=== PATIENT | female | born 1960 | race Caucasian/White ===

== ENCOUNTER 2024-07-11 16:32 | Emergency (ER) | payer MEDICARE, OTHER ==
[~2024-07-11] VITALS: Ht 172.7 cm; Wt 89.1 kg
--- NOTE | 2024-07-11 17:54 | ED.PDOC ---
Back pain HPI HPI Comments 64 y.o female with PMHx of DM, presents to the ED for a chief complaint of upper extremity numbness associated with neck and lower back pain s/p mechanical fall 4 weeks ago. Patient was seen at [facility] when her fall occurred, had multiple X rays done showing left hand 4+5th digit fracture and cervical strain. Patient reports since, pain has been ongoing but states numbness sensation is new. She denies any new falls or injuries. Chief Complaint: Body Pain Time Seen by MD: 17:46 Primary Care Provider: DARIEN Reviewed Notes: Nurses Notes, Medications, Allergies Allergies: Coded Allergies: NO KNOWN ALLERGIES (Unverified , 07/11/24) Information Source: Patient Mode of Arrival: Ambulatory Timing: Weeks (4) Duration: Since onset Location of Back pain: (B) Lower back Severity: Moderate Quality: Sharp Onset: Blunt Trauma Circumstance: Other History of: Other Modifying Factors: Nothing Associated signs and symptoms: Other Past Medical History PAST MEDICAL HISTORY: DM Surgical History: Appendectomy, Cholecystectomy, Hysterectomy LINE PILOT History: No Pertinent LINE PILOT History Family History Family History: Family hx of Cancer Social History Smoker: Non-Smoker Alcohol: Occasionally Drugs: Denies Drug Use Lives In: Home Constitutional: denies: chills, diaphoresis, fatigue, fever, malaise, sweats, weakness, others EENTM: denies: blurred vision, double vision, ear bleeding, ear discharge, ear drainage, ear pain, ear ringing, eye pain, eye redness, hearing loss, mouth pain, mouth swelling, nasal discharge, nose bleeding, nose congestion, nose pain, photophobia, tearing, throat pain, throat swelling, voice changes, others Respiratory: denies: cough, hemoptysis, orthopnea, SOB at rest, shortness of breath, SOB with excertion, stridor, wheezing, others Cardiovascular: denies: chest pain, dizzy spells, diaphoresis, Dyspnea on exertion, edema, irregular heart beat, left arm pain, lightheadedness, palpitations, PND, syncope, others Gastrointestinal: denies: abdomen distended, abdominal pain, blood streaked bowels, constipated, diarrhea, dysphagia, difficulty swallowing, hematemesis, melena, nausea, poor appetite, poor fluid intake, rectal bleeding, rectal pain, vomiting, others Genitourinary: denies: abnormal vagina bleeding, burning, dyspareunia, dysuria, flank pain, frequency, hematuria, incontinence, pain, , vagina discharge, urgency, others Neurological: reports: numbness (upper extremity ); denies: dizziness, fainting, headache, left sided numbness, left sided weakness, paresthesia, pre- existing deficit, right sided numbness, right sided weakness, seizure, speech problems, tingling, tremors, weakness, others Musculoskeletal: reports: back pain, neck pain; denies: gout, joint pain, joint swelling, muscle pain, muscle stiffness, others Integumetry: denies: bruises, change in color, change in hair/nails, dryness, laceration, lesions, lumps, rash, wounds, others Allergic/Immunocompromised: denies: Difficulty Healing, Frequent Infections, Hives, Itching, others Hematologic/Lymphatic: denies: anemia, blood clots, easy bleeding, easy bruising, swollen glands, others Endocrine: denies: excessive hunger, excessive sweating, excessive thirst, excessive urination, flushing, intolerance to cold, intolerance to heat, unexpla ined weight gain, unexplained weight loss, others Psychiatric: denies: anxiety, bipolar disorder, depression, hopeless, panic disorder, schizophrenia, sleepless, suicidal, others All Other Systems: Reviewed and Negative Physical Exam General Appearance: No Apparent Distress HEENT: Normal ENT Inspection, Pharynx Normal, TMs Normal Neck: Full Range of Motion, Non-Tender, Normal, Normal Inspection Respiratory: Chest Non-Tender, Lungs Clear, No Accessory Muscle Use, No Respiratory Distress, Normal Breath Sounds Cardiovascular: No Edema, No JVD, No Murmur, No Gallop, Normal Peripheral Pulses, Regular Rate/Rhythm Breast Exam: Deferred Gastrointestinal: No Organomegaly, Non Tender, No Pulsatile Mass, Normal Bowel Sounds, Soft Genitalia: Deferred Pelvic: Deferred Rectal: Deferred Extremities: No calf tenderness, Normal capillary refill, Normal inspection, Normal range of motion, Non-tender, No pedal edema Musculoskeletal : Apperance: Normal Neurologic: Alert, willower II-XII nml as Tested, No Motor Deficits, Normal Affect, Normal Mood, No Sensory Deficits Cerebellar Function: Normal Reflexes: Normal Skin: Dry, Normal Color, Warm Lymphatic: No Adenopathy Was a procedure done? Was a procedure done?: No Back Pain Differential Dx Differential Diagnosis: DJD, Fracture, Musculoskeletal Pain, Strain X-Ray, Labs, Meds, VS Vital Signs Date Time Temp Pulse Resp B/P (MAP) Pulse Ox O2 Delivery O2 Flow Rate FiO2 07/11/24 19:25 98.6 84 18 141/69 (93) 98 98.6 07/11/24 17:01 97.8 86 16 119/89 (99) 97 97.8 At this time, the patient had an x-ray of the cervical spine which shows: No sign of any abnormalities The lumbar spine x-ray shows: 2 views of the lumbar spine are available for evaluation. Mild straightening of the lumbar lordosis. The vertebral body heights are relatively maintained. Grade 1 retrolisthesis of L1 on L2 with grade 1 anterolisthesis of L3 on L4. Multilevel mild degenerative changes of the lumbar spine. No evidence of acute traumatic fractures. [id number] amount of fecal material within the colon. At this time, the patient is being discharged and will follow up with the [facility] doctor The patient will return to the emergency department's condition worsens. Images Reviewed?: Images reviewed and evaluated by me Time of 1ST Reevaluation: 17:50 Reevaluation 1ST: Unchanged Patient Education/Counseling: Diagnosis, Treatment, Prognosis, Need For Follow Up Family Education/Counseling: No Family Present Departure 1 Departure Time of Disposition: 20:08 Impression: Primary Impression: Musculoskeletal pain Disposition: 01 HOME / SELF CARE / HOMELESS Condition: Fair Discharged With: Self Critical Care Note Critical Care Time?: No Stability Stability form required: No Heart Score Heart Score: Heart Score Response (Comments) Value History N/A 0 EKG N/A 0 Age N/A 0 Risk Factors N/A 0 Troponin N/A 0 Total 0 I personally scribed for MARIETTA KINCAID MD ([email or web address]) on 07/11/24 at 17:54. Electronically submitted by Deandra Vaughn ([facility]). MARIETTA KINCAID MD July 11, 2024 17:54
--- NOTE | 2024-07-11 19:23 | DVH ---
INDICATION: fall TECHNIQUE: AP, lateral and odontoid radiographs of the cervical spine. COMPARISON: None FINDINGS: No prevertebral soft tissue abnormality noted. Straightening of the normal cervical lordosis and mini mal anterolisthesis of C2 on C3, C3 on C4, and C6 on C7. The cervical vertebral bodies appear with no rmal limits. Advanced degenerative disc disease at C5-C6 and C6-C7 with [id number] disc space narrowing a nd small osteophytes. Minimal disc space narrowing and small osteophytes at C3-C4 and C4-C5. 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 IMPRESSION: No acute abnormality identified. Cervical spondylosis predominantly at C5-C6 and C6-C7.
[2024-07-11 19:25] VITALS: BP 141/69; PULSE 84; RESP 18; TEMP 98.6; O2SAT 98
--- NOTE | 2024-07-11 19:27 | DVH ---
CLINICAL INDICATION: fall TECHNIQUE: 3 radiographic views of the lumbar were obtained. Comparison: None FINDINGS/IMPRESSION: 2 views of the lumbar spine are available for evaluation. Mild straightening of the lumbar lordosis. The vertebral body heights are relatively maintained. Grade 1 retrolisthesis of L1 on L2 with grade 1 anterolisthesis of L3 on L4. Multilevel mild degenerative changes of the lumbar spine. No evidence of acute traumatic fractures. [id number] amount of fecal material within the colon. Please see separate report for cervical spine images
== END 2024-07-11 20:07 | disposition home or self-care (01) ==
LOC: ER 16:32
DX: M79.18 Myalgia, other site (principal); M54.2 Cervicalgia; M54.50 Low back pain, unspecified; E11.9 Type 2 diabetes mellitus without complications; Z90.710 Acquired absence of both cervix and uterus; Z90.49 Acquired absence of other specified parts of digestive tract
CPT/HCPCS: 72040; 72100